=== PATIENT | female | born 1970 | race Caucasian/White ===

== ENCOUNTER 2020-11-21 04:23 | Day surgery (SDC) | payer OTHER ==
[2020-11-16 16:47] VITALS: BMI 35.6
[2020-11-21] MEDS ORDERED: ROCURONIUM BROMIDE 50 MG/5 ML SYRINGE ONE (10:03)
[2020-11-21] MEDS ORDERED: PROPOFOL 20 ML ONE (10:17)
[2020-11-21] MEDS ORDERED: MIDAZOLAM HCL 2 MG/2 ML SINGLE DOSE VIAL ONE (10:17)
[2020-11-21] MEDS ORDERED: BUPIVACAINE HCL/PF 0.5% (5 MG/ML) 30 ML VIAL IJ ONE (10:20)
[2020-11-21] MEDS ORDERED: LIDOCAINE HCL 1%, 10 MG/ML (20ML VIAL) PNB ONE (10:20)
[2020-11-21] MEDS ORDERED: ONDANSETRON 4 MG/2 ML VIAL IVPUSH PRN (12:10)
[2020-11-21] MEDS ORDERED: oxyCODONE HCL 5 MG TABLET PO PRN (12:10)
[2020-11-21] MEDS ORDERED: LACTATED RINGERS SOLUTION 1,000 ML IV SCH (12:15)
[2020-11-21 12:20] VITALS: BP 110/59; PULSE 61; TEMP 97.5
== END 2020-11-21 12:10 | disposition home or self-care (01) ==
LOC: JASU-SURG 04:23
PROVIDERS: ATTEND Orthopaedic Surgery
PROC: 0JCK0ZZ Extirpation of Matter from Left Hand Subcutaneous Tissue and Fascia, Open Approach (ICD-10-PCS; principal; 2020-11-21 09:30)
DX: M79.5 Residual foreign body in soft tissue (principal)
CPT/HCPCS: 84703